=== PATIENT | female | born 1980 | race Caucasian/White ===

== ENCOUNTER 2018-06-25 09:27 | Emergency (ER) | payer SELFPAY ==
[2018-06-25 09:59] VITALS: BP 156/108
--- NOTE | 2018-06-25 10:13 | UC ---
Neck Pain HPI - HPI Summary HPI Summary: 37 y/o female presents to the urgent care c/o Rt side of neck pain radiating to the Rt shoulder s/p doing an endoscopy on a patient last Sunday06/21/2018. Pt reports seh was putting stomach pressure and suddenly she fel pain her neck. The next day she woke up unable to move her head to the Rt side. Pain has increase w/ time. Pain is sharp w/ head movement 7/10. She has been taking Flexeril PO and Ibuprofen PO to alleviate symptoms. Pt w/ Hx of DDD in her lower back. Pt denies numbness or tingling sensation over the upper extremities. She can move Rt shoulder w/o any difficulty except lifting her arm all the way up. Pt denies fever, SOB, chest pain, dizziness, DUNBAR, chest pain, abdominal pain, N/V/D. - History of Current Complaint Chief Complaint: UCTrauma Stated Complaint: NECK INJURY Time Seen by Provider: 06/25/18 10:10 Hx Obtained From: Patient Hx Last Menstrual Period: unknown, mirena ?: No - Pt on mirena declines test Onset/Duration Of Injury/Symptoms: Days - 5 days Mechanism Of Injury: No Known Trauma - Pt was pusing on a patient while doing an endoscopy and then she developes RT side of neck pain Timing: Constant Onset/Duration: Sudden Onset, Lasting Days - 5 days, Still Present, Worse Since - yesterday Severity: Moderate Pain Intensity: 7 Pain Scale Used: 0-10 Numeric Location: Discrete At: - RT side of neck, Radiates To: - RT shoulder Character: Stiff, Spasmotic Aggravating Factors: Movement Alleviating Factors: OTC Meds Associated Signs & Symptoms: Positive: Negative. Negative: Swelling, Redness, Bruising, Fever, Nuchal Rigity, Weakness, Headache, Paresthesia - Risk Factors Meningitis Risk Factors: Negative - Allergies/Home Medications Allergies/Adverse Reactions: Allergies Allergy/AdvReac Type Severity Reaction Status Date / Time No Known Allergies Allergy Verified 06/25/18 09:55 Home Medications: Home Medications Cyclobenzaprine TAB* [Flexeril 10 MG TAB*] 10 mg PO ONCE 06/25/18 [History Confirmed 06/25/18] Metoprolol Succinate XL TAB* [Toprol XL TAB*] 25 mg PO DAILY 06/25/18 [History Confirmed 06/25/18] PMH/Surg Hx/FS Hx/Imm Hx Previously Healthy: Yes Other Neurological History: spondylolithesis and DDD of lower back - Surgical History Surgical History: None - Family History Known Family History: Positive: Cardiac Disease, Hypertension Family History: Liver disease - Social History Occupation: Employed Full-time Lives: With Family Alcohol Use: Occasionally Substance Use Type: None Smoking Status (MU): Light Every Day Tobacco Smoker Type: Cigarettes Amount Used/How Often: 1/2ppd Have You Smoked in the Last Year: Yes Review Of Systems Constitutional: Positive: Negative Skin: Positive: Negative Eyes: Positive: Negative ENT: Positive: Negative Respiratory: Positive: Negative Cardiovascular: Positive: Negative Gastrointestinal: Positive: Negative Genitourinary: Positive: Negative Musculoskeletal: Positive: Decreased ROM - neck on RT side, Other: - RT side of neck pain radiating to Rt shoulder Neurological: Positive: Negative Psychological: Positive: Negative All Other Systems Reviewed And Are Negative: No Physical Exam - Summary Physical Exam Summary: Vital Signs Reviewed: Yes General: well developed, well nourished female sitting in the examining w/o any apparent distress. Eyes: Positive: Conjunctiva Clear - -Eyes: sclera and conjunctiva clear, corneas grossly clear, PEERLA, EOMI, no nystagmus, no ptosis,no photophobia, normal fundoscopic exam, normal visual blankenship,, Other: - -Head:scalp atraumatic , NT, no trigger points ENT: Positive: Normal ENT inspection, Hearing grossly normal, Pharynx normal, TMs normal - B/L external ear canals clear, Other: - No TMJ tenderness. Negative: Nasal congestion, Nasal drainage, Tonsillar swelling, Tonsillar exudate Dental Exam: Normal Neck: no surface trauma, open wounds, soft tissue, Point tenderness over the RT side of neck w/ spasm; trachea midline, NT over larynx. No subcutaneous emphysema or crepitus. No bony mid line cervical tenderness, no step-off or deformity to firm palpation at posterior midline. Decrease ROM with limitation to RT side due to pain;No meningeal signs, no Kernig's or brudzinskis signs. Respiratory: Positive: Chest non-tender, Lungs clear, Normal breath sounds, No respiratory distress Cardiovascular: Positive: RRR, No Murmur, Pulses Normal, Brisk Capillary Refill Abdomen Description: Positive: Nontender, No Organomegaly, Soft. Negative: CVA Tenderness (R), CVA Tenderness (L) Bowel Sounds: Positive: Present Musculoskeletal: Positive: Strength Intact, ROM Intact, No Edema Neurological: Positive: Alert - A&OX3, CNII-XII WNL, speech, memory and expression WNL,, Muscle Tone Normal - Muscle strength 5/5 in both upper and lower extremities. Normal gait, negative Romberg test and good coordination finger to nose, heel to buchanan WNL, sensation intact. Reflexes WNL Psychological Exam: Normal Skin: Positive: warm and dry , no rashes or petechiae observed Triage Information Reviewed: Yes Vital Signs: Initial Vital Signs Temp 97.8 F 06/25/18 09:54 Pulse 88 06/25/18 09:54 Resp 16 06/25/18 09:54 BP 156/108 06/25/18 09:54 Pulse Ox 100 06/25/18 09:54 Neck Pain Course/Dx - Course Course Of Treatment: 37 y/o female presents to the urgent care c/o Rt side of neck pain radiating to the Rt shoulder s/p doing an endoscopy on a patient last Sunday06/21/2018. Pt reports seh was putting stomach pressure and suddenly she fel pain her neck. The next day she woke up unable to move her head to the Rt side. Pain has increase w/ time. Pain is sharp w/ head movement 10. She has been taking Flexeril PO and Ibuprofen PO to alleviate symptoms. Pt w/ Hx of DDD in her lower back. Pt denies numbness or tingling sensation over the upper extremities. She can move Rt shoulder w/o any difficulty except lifting her arm all the way up. Pt denies fever, SOB, chest pain, dizziness, DUNBAR , chest pain, abdominal pain, N/V/D. Pt w/ a spasm in RT side of the neck at the level of C5-C6 on examination. Pt given Toradol IM inj to alleviate symptoms. Pt tolerated well IM inj and pain decrease. . Neck X-ray ordered; Impression: Degenerative Disc disease at C5-C6 w/ straightening of normal lordosis. Pt given a soft collar for comfort. Pt Rx Medrol dose yvette and advised to continue w/ Ibuprofen PO starting tomorrow and Flexeril PO. Patient was instructed to f/u with her DR who managens her lower back at the [facility] or Dr Lozano for further managemetn. Patient understands and agrees. Patient is able to ambulate freely w/o aid or limp. Plan of care was discussed with the patient and patient understands and agrees. Pt's BP is elevated today advised to decrease salt in diet, monitor BP and f/u with PCP for further management. All questions were answered at patient satisfaction. Pt left clinic hemodynamically stable. - Differential Dx/Diagnosis Differential Dx/HQI/PQRI: Arthritis, Cervical Fracture, Sprain, Strain, Torticollis, Other - DDD Provider Diagnosis: Neck pain, acute, Degenerative disc disease, cervical, Torticollis, acute, Elevated BP without diagnosis of hypertension Discharge - Sign-Out/Discharge Documenting (check all that apply): Patient Departure - D/C home All imaging exams completed and their final reports reviewed: Yes - Discharge Plan Condition: Stable Disposition: HOME Prescriptions: methylPREDNISolone [Medrol Dosepak 4 MG*] 4 mg PO .SEE YVETTE INSTRUCTION #1 yvette Patient Education Materials: Spasmodic Torticollis (ED), Low-Sodium Diet (ED), Degenerative Disc Disease (ED) Referrals: [facility] [place] [facility] [Outside] - 3 Days Tao Lozano MD [Medical Doctor] - If Needed Additional Instructions: 1- Please take Medrol dose yvette as directed and continue taking Ibuorofen PO 8010mg PO q6-8hrs as directed after meals for pain starting tomorrow since you were given Toradol IM inj today. 2- Continue taking Flexeril PO as directed for muscle spasm. Please do not drive while taking the medication. 3- Wear the soft collar for support. Avoid strenuous exercise of heavy lifting. 4- Please follow up with your PCP or the DR at [facility] who has been managing your DDD for further management on your symptoms. 5- Your BP is elevated today. please decrease salt in your diet, monitor BP and if it continues to be elevated please f/u with your PCP for further management - Billing Disposition and Condition Condition: STABLE Disposition: Home
[2018-06-25] MEDS ORDERED: Ketorolac INJ* 30 MG/ML 1 ML VIAL IM ONE (10:27)
== END 2018-06-25 11:24 | disposition home or self-care (01) ==
LOC: UCCORT 09:27
DX: M50.323 Other cervical disc degeneration at C6-C7 level (principal); M43.6 Torticollis; R03.0 Elevated blood-pressure reading, without diagnosis of hypertension; M43.10 Spondylolisthesis, site unspecified; M51.37 Other intervertebral disc degeneration, lumbosacral region; F17.210 Nicotine dependence, cigarettes, uncomplicated
CPT/HCPCS: 72050; 96372; 99203; G0463; J1885

== ENCOUNTER 2018-11-20 14:06 | Emergency (ER) | payer SELFPAY ==
[2018-11-20 14:17] VITALS: BP 131/116
--- NOTE | 2018-11-20 14:39 | UC ---
General HPI - HPI Summary HPI Summary: 37 -year-old female who has been on metoprolol 50 mg daily. She ran out of the prescription in July and was trying to establish care with another provider. Since then she states she has been cutting the metoprolol in half and taking 25 mg daily to make it last. She is waiting on [facility] to call her back to establish care. She denies any symptoms related to hypertension such as chest pain, dizziness weakness, headache no shortness of breath. She is here for a medication refill. The patient was at work yesterday and she says occasionally when her blood pressure is high her cheeks we'll get red and she'll feel warm so she took her own blood pressure was elevated yesterday and then again today was elevated so she came here for medication refill. She has been out of medication for approximately 2 or 3 months. - History of Current Complaint Chief Complaint: UCMedRefill Stated Complaint: HIGH BP Time Seen by Provider: 11/20/18 14:26 Hx Obtained From: Patient Hx Last Menstrual Period: unknown Onset/Duration: Lasting Weeks Onset Severity: Mild Current Severity: Mild - No symptoms Pain Intensity: 0 - Allergy/Home Medications Allergies/Adverse Reactions: Allergies Allergy/AdvReac Type Severity Reaction Status Date / Time No Known Allergies Allergy Verified 11/20/18 14:10 PMH/Surg Hx/FS Hx/Imm Hx Previously Healthy: Yes Cardiovascular History: Hypertension - Surgical History Surgical History: None - Family History Known Family History: Positive: Cardiac Disease, Hypertension Family History: Liver disease - Social History Alcohol Use: Occasionally Substance Use Type: None Smoking Status (MU): Light Every Day Tobacco Smoker Type: Cigarettes Amount Used/How Often: 1/2ppd Have You Smoked in the Last Year: Yes Review of Systems All Other Systems Reviewed And Are Negative: Yes Is Patient Immunocompromised?: No Physical Exam Triage Information Reviewed: Yes Appearance: Well-Appearing, No Pain Distress, Well-Nourished Vital Signs: Initial Vital Signs Temp 97.9 F 11/20/18 14:11 Pulse 110 11/20/18 14:11 Resp 16 11/20/18 14:11 BP 131/116 11/20/18 14:11 Pulse Ox 100 11/20/18 14:11 Vital Signs Reviewed: Yes Eye Exam: Normal Eyes: Positive: Conjunctiva Clear - PERRLA, EOMI ENT: Positive: Normal ENT inspection, Hearing grossly normal, Pharynx normal, TMs normal, Uvula midline Neck: Positive: Supple, Nontender, No Lymphadenopathy Respiratory: Positive: Lungs clear, Normal breath sounds, No respiratory distress, No accessory muscle use Cardiovascular: Positive: RRR, No Murmur, Pulses Normal, Brisk Capillary Refill Abdomen Description: Positive: Nontender, No Organomegaly, Soft Bowel Sounds: Positive: Present Musculoskeletal: Positive: Strength Intact, ROM Intact, No Edema - Good peripheral pulses neuro sensation capillary refill. Full range of motion. Neurological: Positive: Alert, Muscle Tone Normal - Romberg negative, good heel- to-toe forward and backward, good [id number] bilaterally, negative eye drift, normal dystidiokinesis, good finger to nose bilaterally. Psychological Exam: Normal Skin Exam: Normal Course/Dx - Course Course Of Treatment: Patient has no complaints here other than she needs a medication fill of her metoprolol. She has been on metoprolol 25 mg by mouth twice a day and she's been on Toprol 50 mg daily. She opted to go with the 25 mg twice a day. I did refill that prescription however for only 2 weeks and she is to follow-up either with [facility] with whom she is trying to establish care, or the [facility] if she cannot get in with [facility] soon enough. I advised her if she develops any weakness, headache, chest pain shortness of breath or concerning symptoms she is to go to the emergency room. She is agreeable to this plan of action. - Diagnoses Provider Diagnosis: Medication refill, Hypertension Discharge - Sign-Out/Discharge Documenting (check all that apply): Patient Departure All imaging exams completed and their final reports reviewed: No Studies - Discharge Plan Condition: Good Disposition: HOME Prescriptions: Metoprolol Succinate XL TAB* [Toprol XL TAB*] 25 mg PO BID 14 Days #28 tab.xl Patient Education Materials: Hypertension (ED) Referrals: No Primary Care Phys,NOPCP [Primary Care Provider] - Gui Chang PA [Physician Mail Processing Equipment Mechanic] - Additional Instructions: Definite follow-up in the emergency room if you develop any headache, weakness on one side or the other, chest pain, difficulty breathing. Definite follow-up with your primary care provider within the next 2 weeks before the medication runs out. - Billing Disposition and Condition Condition: GOOD Disposition: Home
== END 2018-11-20 14:52 | disposition home or self-care (01) ==
LOC: UCCORT 14:06
DX: Z76.0 Encounter for issue of repeat prescription (principal); I10 Essential (primary) hypertension; F17.210 Nicotine dependence, cigarettes, uncomplicated
CPT/HCPCS: 99212; G0463